=== PATIENT | male | born 1960 ===

== ENCOUNTER 2018-03-08 06:48 | Inpatient (IN) ==
[2018-03-03 12:23] LABS: Basophils # 0.1 10*3/uL (0.0-0.2); Basophils % 1.5 % (0.0-0.8); Eosinophils # 0.2 10*3/uL (0.0-0.87); Eosinophils % 3.8 % (0.00-10.9); Hematocrit 34.6 VOL% (42.0-52.0); Hemoglobin 11.4 GM/DL (14.0-18.0); Immature Granulocytes % 0.5 %; Immature Granulocytes Absolute 0.03 #; Lymphocytes # 1.3 10*3/uL (1.4-4.0); Lymphocytes % 21.9 % (21.2-54.2); Mean Corpuscular HGB Conc 32.9 GM/DL (32-36); Mean Corpuscular Hemoglobin 36 PG (27-34); Mean Corpuscular Volume 109.5 FL (87-102); Mean Platelet Volume 9.4 FL (9.6-12.0); Monocytes # 0.6 10*3/uL (0.11-0.8); Monocytes % 10.3 % (1.7-12.7); Neutrophils # 3.6 10*3/uL (1.4-7.4); Platelet Count 226 T/CUMM (130-400); Red Blood Count 3.16 MC/CUMM (3.8-5.5); Red Cell Distribution Width 17.1 % (9.3-17.3); White Blood Count 5.8 T/CUMM (4-12)
[2018-03-03 12:51] LABS: Bilirubin,Total 0.6 MG/DL (0.2-1.0); Calcium 8.7 MG/DL (8.5-10.1); Osmolality,Calculated 283.8 MOS/KG (273-304)
[~2018-03-08 06:48] MED LIST: SODIUM CHLORIDE 0.9% 250 ML IV SCH; ceFAZolin 1,000 MG VIAL ONE; ceFAZolin 1,000 MG in SYRINGE 1 EACH IV ONE
[2018-03-08 07:22] LABS: Hematocrit 33.9 VOL% (42.0-52.0); Hemoglobin 11.3 GM/DL (14.0-18.0)
[2018-03-08] MEDS ORDERED: HEPARIN 5,000 UNIT/1 ML VIAL ONE ×2 (09:14→12:23)
[2018-03-08] MEDS ORDERED: LIDOCAINE 1% 50 ML VIAL ONE (09:15)
[2018-03-08] MEDS ORDERED: VANCOMYCIN 500 MG VIAL ONE (09:15)
[2018-03-08] MEDS ORDERED: THROMBIN TOPICAL (RECOMBINANT) 5,000 UNIT VIAL TOP ONE (09:15)
[2018-03-08] MEDS ORDERED: ONDANSETRON 4 MG/2 ML VIAL IV PRN (13:11)
[2018-03-08] MEDS ORDERED: NITROGLYCERIN DRIP 50 MG/250 ML BOTTLE IV ONE (13:26)
[2018-03-08] MEDS ORDERED: LACTATED RINGERS 1,000 ML IV SCH (13:30)
[2018-03-08 13:56] LABS: Hematocrit 34.5 VOL% (42.0-52.0); Hemoglobin 11.1 GM/DL (14.0-18.0)
[2018-03-08] MEDS ORDERED: SEVOFLURANE 1 UNIT/15 MINUTE INH ONE (13:59)
[2018-03-08] MEDS ORDERED: PROPOFOL 200 MG/20 ML VIAL IV ONE (13:59)
[2018-03-08] MEDS ORDERED: MIDAZOLAM 2 MG/2 ML VIAL ONE (13:59)
[2018-03-08] MEDS ORDERED: fentaNYL 100 MCG/2 ML VIAL ONE (13:59)
[2018-03-08] MEDS ORDERED: SODIUM CHLORIDE 0.9% 500 ML IV ONE ×2 (14:00)
[2018-03-08] MEDS ORDERED: ePHEDrine 50 MG/ML AMP ONE (14:00)
[2018-03-08] MEDS ORDERED: PHENYLEPHRINE 10 MG/1 ML VIAL IV ONE (14:00)
[2018-03-08] MEDS ORDERED: PHENYLEPHRINE 1 MG/10 ML SYRINGE IV ONE (14:00)
[2018-03-08] MEDS ORDERED: ROCURONIUM 100 MG/10 ML VIAL IV ONE (14:00)
[2018-03-08] MEDS ORDERED: SODIUM CHLORIDE 0.9% 100 ML IV ONE (14:00)
[2018-03-08 14:50] LABS: CKMB % 1.1 %
[2018-03-08 14:51] LABS: Troponin I Only 0.062 NG/ML (0.00-0.045)
[2018-03-08] MEDS: ISOSORBIDE MONONITRATE 30 MG TABLET PO SCH (16:05)
[2018-03-08] MEDS: HYDROmorphone 2 MG/1 ML VIAL IV PRN ×4 (16:05→23:36)
[2018-03-08] MEDS: DOCUSATE SODIUM 100 MG CAPSULE PO SCH (20:25)
[2018-03-08] MEDS: CARVEDILOL 6.25 MG TABLET PO SCH (20:26)
[2018-03-08] MEDS: CALCIUM ACETATE 667 MG CAPSULE PO SCH (20:26)
[2018-03-08] MEDS: INSULIN NPH/REGULAR 70/30 100 UNIT/ML SUBCUT SCH (20:33)
[2018-03-08] MEDS: LATANOPROST 0.005% OPH SOLN 2.5 ML BOTTLE RIGHT EYE SCH (21:42)
[2018-03-09 04:22] LABS: Hematocrit 29.9 VOL% (42.0-52.0); Hemoglobin 9.9 GM/DL (14.0-18.0)
[2018-03-09 04:55] LABS: Calcium 7.8 MG/DL (8.5-10.1); Osmolality,Calculated 278.2 MOS/KG (273-304)
[2018-03-09] MEDS ORDERED: GLUCAGON 1 MG VIAL IM PRN ×2 (08:37→08:40)
[2018-03-09] MEDS ORDERED: DEXTROSE 50% 25 GM/50 ML VIAL IV PRN ×2 (08:37→08:40)
[2018-03-09] MEDS ORDERED: ATORVASTATIN 40 MG TABLET PO SCH (09:00)
[2018-03-09] MEDS ORDERED: CLOPIDOGREL 75 MG TABLET PO SCH (09:00)
[2018-03-09] MEDS ORDERED: ASPIRIN CHEW 81 MG TABLET PO SCH (09:00)
[2018-03-09] MEDS: INSULIN NPH/REGULAR 70/30 100 UNIT/ML SUBCUT SCH ×2 (09:03→21:18)
[2018-03-09] MEDS: FEXOFENADINE 180 MG TABLET PO SCH (09:04)
[2018-03-09] MEDS: MULTIVITAMIN (BEROCCA) TABLET PO SCH (09:05)
[2018-03-09] MEDS: MULTIVITAMIN (CENTRUM) TABLET PO SCH (09:05)
[2018-03-09] MEDS: ISOSORBIDE MONONITRATE 30 MG TABLET PO SCH (09:05)
[2018-03-09] MEDS: CALCIUM ACETATE 667 MG CAPSULE PO SCH ×3 (09:05→21:18)
[2018-03-09] MEDS: FENOFIBRATE 145 MG TABLET PO SCH (09:05)
[2018-03-09] MEDS: CARVEDILOL 6.25 MG TABLET PO SCH ×2 (09:05→21:17)
[2018-03-09] MEDS: HYDROmorphone 2 MG/1 ML VIAL IV PRN ×2 (09:05→19:51)
[2018-03-09] MEDS: CLOPIDOGREL 75 MG TABLET PO SCH (09:05)
[2018-03-09] MEDS: LOSARTAN 25 MG TABLET PO SCH (09:05)
[2018-03-09] MEDS: ASPIRIN EC 81 MG TABLET PO SCH (09:05)
[2018-03-09] MEDS: DOCUSATE SODIUM 100 MG CAPSULE PO SCH ×2 (09:25→21:17)
[2018-03-09 10:28] LABS: Troponin I Only 0.401 NG/ML (0.00-0.045)
[2018-03-09 12:37] LABS: Troponin I Only 0.305 NG/ML (0.00-0.045)
[2018-03-09] MEDS: INSULIN REGULAR 100 UNIT/ML SUBCUT SCH ×2 (13:16→21:17)
[2018-03-09] MEDS: ATORVASTATIN 40 MG TABLET PO SCH (21:17)
[2018-03-09] MEDS: LATANOPROST 0.005% OPH SOLN 2.5 ML BOTTLE RIGHT EYE SCH (22:53)
[2018-03-10 05:35] LABS: Hematocrit 27.5 VOL% (42.0-52.0); Hemoglobin 9.1 GM/DL (14.0-18.0)
[2018-03-10] MEDS: HYDROmorphone 2 MG/1 ML VIAL IV PRN ×3 (06:03→20:03)
[2018-03-10] MEDS: INSULIN NPH/REGULAR 70/30 100 UNIT/ML SUBCUT SCH ×2 (10:31→17:14)
[2018-03-10] MEDS: INSULIN REGULAR 100 UNIT/ML SUBCUT SCH ×4 (10:32→21:26)
[2018-03-10] MEDS: CALCIUM ACETATE 667 MG CAPSULE PO SCH ×3 (10:33→17:58)
[2018-03-10] MEDS: FENOFIBRATE 145 MG TABLET PO SCH (10:34)
[2018-03-10] MEDS: ASPIRIN EC 81 MG TABLET PO SCH (10:34)
[2018-03-10] MEDS: FEXOFENADINE 180 MG TABLET PO SCH (10:34)
[2018-03-10] MEDS: DOCUSATE SODIUM 100 MG CAPSULE PO SCH ×2 (10:34→21:26)
[2018-03-10] MEDS: ISOSORBIDE MONONITRATE 30 MG TABLET PO SCH (10:34)
[2018-03-10] MEDS: LOSARTAN 25 MG TABLET PO SCH (10:34)
[2018-03-10] MEDS: CLOPIDOGREL 75 MG TABLET PO SCH (10:34)
[2018-03-10] MEDS: MULTIVITAMIN (BEROCCA) TABLET PO SCH (10:34)
[2018-03-10] MEDS: CARVEDILOL 6.25 MG TABLET PO SCH ×2 (10:34→21:26)
[2018-03-10] MEDS: MULTIVITAMIN (CENTRUM) TABLET PO SCH (10:34)
[2018-03-10] MEDS: ATORVASTATIN 40 MG TABLET PO SCH (21:26)
[2018-03-10] MEDS: LATANOPROST 0.005% OPH SOLN 2.5 ML BOTTLE RIGHT EYE SCH (21:26)
[2018-03-11] MEDS: HYDROmorphone 2 MG/1 ML VIAL IV PRN ×2 (03:10→14:20)
[2018-03-11 07:19] LABS: Troponin I Only 0.108 NG/ML (0.00-0.045)
[2018-03-11] MEDS: INSULIN NPH/REGULAR 70/30 100 UNIT/ML SUBCUT SCH (08:30)
[2018-03-11] MEDS: MULTIVITAMIN (BEROCCA) TABLET PO SCH (08:30)
[2018-03-11] MEDS: LOSARTAN 25 MG TABLET PO SCH (08:30)
[2018-03-11] MEDS: CLOPIDOGREL 75 MG TABLET PO SCH (08:30)
[2018-03-11] MEDS: ISOSORBIDE MONONITRATE 30 MG TABLET PO SCH (08:30)
[2018-03-11] MEDS: FENOFIBRATE 145 MG TABLET PO SCH (08:30)
[2018-03-11] MEDS: ASPIRIN EC 81 MG TABLET PO SCH (08:30)
[2018-03-11] MEDS: DOCUSATE SODIUM 100 MG CAPSULE PO SCH (08:30)
[2018-03-11] MEDS: CARVEDILOL 6.25 MG TABLET PO SCH (08:30)
[2018-03-11] MEDS: CALCIUM ACETATE 667 MG CAPSULE PO SCH ×2 (08:30→12:18)
[2018-03-11] MEDS: FEXOFENADINE 180 MG TABLET PO SCH (08:30)
[2018-03-11] MEDS: MULTIVITAMIN (CENTRUM) TABLET PO SCH (08:30)
[2018-03-11] MEDS: INSULIN REGULAR 100 UNIT/ML SUBCUT SCH ×3 (08:38→16:46)
[2018-03-11 16:02] VITALS: BP 112/56
== END 2018-03-11 17:42 | disposition home or self-care (01) | DRG 252 ==
LOC: N.OR 06:48 → N.SDSINP 08:50 → N.CC 13:11 → N.3E 03-09 18:51
PROVIDERS: ADMIT Surgery; ATTEND Surgery

== ENCOUNTER 2019-09-30 18:36 | Inpatient (IN) ==
[2019-09-30] MEDS ORDERED: ASPIRIN 325 MG TABLET PO ONE (21:24)
[2019-09-30] MEDS ORDERED: ACETAMINOPHEN 325 MG TABLET PO PRN (21:29)
[2019-09-30] MEDS ORDERED: guaiFENesin/DM ER 600-30 MG TABLET PO PRN (21:29)
[2019-09-30] MEDS ORDERED: ONDANSETRON 4 MG/2 ML VIAL IV PRN (21:29)
[2019-09-30] MEDS ORDERED: ATORVASTATIN 40 MG TABLET PO SCH (21:30)
[2019-09-30] MEDS ORDERED: DEXTROSE 50% 25 GM/50 ML VIAL IV PRN (21:32)
[2019-09-30] MEDS ORDERED: GLUCAGON 1 MG VIAL IM PRN (21:32)
[2019-09-30] MEDS: SODIUM CHLORIDE 0.9% 1,000 ML IV SCH (22:45)
[2019-09-30 23:34] LABS: Basophils # 0.1 10*3/uL (0.0-0.2); Basophils % 1.3 % (0.0-0.8); Eosinophils # 0.2 10*3/uL (0.0-0.87); Hematocrit 36.3 VOL% (42.0-52.0); Hemoglobin 11.9 GM/DL (14.0-18.0); Immature Granulocytes % 0.4 %; Immature Granulocytes Absolute 0.02 #; Lymphocytes # 1.2 10*3/uL (1.4-4.0); Lymphocytes % 25.2 % (21.2-54.2); Mean Corpuscular HGB Conc 32.8 GM/DL (32-36); Mean Corpuscular Volume 103.7 FL (87-102); Mean Platelet Volume 9.6 FL (9.6-12.0); Monocytes % 8.9 % (1.7-12.7); Neutrophils % 59.2 % (38.7-73.9); Platelet Count 186 T/CUMM (130-400); Red Cell Distribution Width 18.2 % (9.3-17.3); White Blood Count 4.6 T/CUMM (4-12)
[2019-09-30 23:42] LABS: INR 1.1; PT Patient Result 11.4 SECS (9.6-12.2)
[2019-09-30 23:46] LABS: Calcium 8.5 MG/DL (8.5-10.1); Osmolality,Calculated 286.8 MOS/KG (273-304)
[2019-10-01 05:39] LABS: Basophils # 0.1 10*3/uL (0.0-0.2); Basophils % 1.4 % (0.0-0.8); Eosinophils # 0.3 10*3/uL (0.0-0.87); Eosinophils % 5.2 % (0.00-10.9); Hematocrit 34.2 VOL% (42.0-52.0); Hemoglobin 11.3 GM/DL (14.0-18.0); Immature Granulocytes % 0.4 %; Immature Granulocytes Absolute 0.02 #; Lymphocytes # 1.2 10*3/uL (1.4-4.0); Lymphocytes % 25.1 % (21.2-54.2); Mean Corpuscular Volume 103.6 FL (87-102); Mean Platelet Volume 10.1 FL (9.6-12.0); Neutrophils % 56.9 % (38.7-73.9); Platelet Count 189 T/CUMM (130-400); Red Cell Distribution Width 18.2 % (9.3-17.3); White Blood Count 4.8 T/CUMM (4-12)
[2019-10-01 07:18] LABS: Albumin 3.2 G/DL (3.4-5.0); Bilirubin,Total 0.6 MG/DL (0.2-1.0); Calcium 8.5 MG/DL (8.5-10.1); Osmolality,Calculated 289.5 MOS/KG (273-304); Risk Ratio 5.38; Total Protein 6.6 G/DL (6.4-8.3); VLDL CHOLESTEROL 69.8 MG/DL
[2019-10-01] MEDS ORDERED: AMOXICILLIN/CLAV 875 MG TABLET PO SCH (08:00)
[2019-10-01] MEDS: hydrALAZINE 20 MG/1 ML VIAL IV PRN ×2 (08:32→10:55)
[2019-10-01] MEDS ORDERED: FENOFIBRATE 145 MG TABLET PO SCH (09:00)
[2019-10-01] MEDS ORDERED: CLOPIDOGREL 75 MG TABLET PO SCH (09:00)
[2019-10-01] MEDS ORDERED: B COMPLEX WITH VITAMIN C PO SCH (09:00)
[2019-10-01] MEDS ORDERED: ISOSORBIDE MONONITRATE 30 MG TABLET PO SCH (09:00)
[2019-10-01] MEDS ORDERED: MULTIVITAMIN (CENTRUM) TABLET PO SCH (09:00)
[2019-10-01] MEDS ORDERED: PANTOPRAZOLE 40 MG TABLET PO SCH (09:00)
[2019-10-01] MEDS ORDERED: ASPIRIN EC 325 MG TABLET PO SCH (09:00)
[2019-10-01] MEDS: INSULIN LISPRO 100 UNIT/ML SUBCUT SCH ×4 (10:27→20:38)
[2019-10-01] MEDS ORDERED: ASPIRIN 325 MG TABLET ONE (10:42)
[2019-10-01] MEDS: CALCIUM ACETATE 667 MG CAPSULE PO SCH ×3 (10:47→16:44)
[2019-10-01] MEDS: carvediloL 6.25 MG TABLET PO SCH ×2 (10:48→16:43)
[2019-10-01] MEDS: SODIUM CHLORIDE 0.9% 1,000 ML IV SCH (11:04)
[2019-10-01] MEDS: INSULIN NPH 100 UNIT/ML SUBCUT SCH (16:43)
[2019-10-01] MEDS ORDERED: DOCUSATE SODIUM 100 MG CAPSULE PO SCH (21:00)
[2019-10-01] MEDS ORDERED: LOSARTAN 25 MG TABLET PO SCH (21:00)
[2019-10-01] MEDS ORDERED: LATANOPROST 0.005% OPH SOLN 2.5 ML BOTTLE RIGHT EYE SCH (21:00)
[2019-10-01] MEDS ORDERED: ATORVASTATIN 40 MG TABLET PO SCH (21:00)
[2019-10-02 08:21] VITALS: BP 164/78
[2019-10-02 08:50] LABS: Basophils # 0.1 10*3/uL (0.0-0.2); Basophils % 0.9 % (0.0-0.8); Eosinophils # 0.2 10*3/uL (0.0-0.87); Eosinophils % 3.2 % (0.00-10.9); Hematocrit 37.1 VOL% (42.0-52.0); Hemoglobin 12.1 GM/DL (14.0-18.0); Immature Granulocytes % 0.4 %; Immature Granulocytes Absolute 0.03 #; Lymphocytes # 1.3 10*3/uL (1.4-4.0); Mean Corpuscular HGB Conc 32.6 GM/DL (32-36); Monocytes % 9.1 % (1.7-12.7); Neutrophils % 68.4 % (38.7-73.9); Platelet Count 180 T/CUMM (130-400); Red Cell Distribution Width 18.6 % (9.3-17.3)
[2019-10-02] MEDS ORDERED: FENOFIBRATE 145 MG TABLET PO SCH (09:00)
[2019-10-02] MEDS ORDERED: ASPIRIN EC 81 MG TABLET PO SCH (09:00)
[2019-10-02] MEDS: INSULIN LISPRO 100 UNIT/ML SUBCUT SCH (09:03)
[2019-10-02 09:13] LABS: Calcium 8.6 MG/DL (8.5-10.1); Osmolality,Calculated 291.8 MOS/KG (273-304)
[2019-10-02] MEDS: INSULIN NPH 100 UNIT/ML SUBCUT SCH (10:51)
[2019-10-02] MEDS: CALCIUM ACETATE 667 MG CAPSULE PO SCH (10:52)
== END 2019-10-02 14:53 | disposition home or self-care (01) | DRG 304 ==
LOC: N.TELEN → SUATTDRO 21:29
PROVIDERS: ADMIT Internal Medicine; ATTEND Internal Medicine

== ENCOUNTER 2020-10-22 19:25 | Inpatient (IN) ==
[2020-10-22] MEDS ORDERED: PIPERACILLIN/TAZOBACTAM 2,250 MG in SODIUM CHLORIDE 0.9% 100 ML IV STA (19:54)
[2020-10-22 20:23] LABS: Basophils # 0.1 10*3/uL (0.0-0.2); Basophils % 0.9 % (0.0-0.8); Eosinophils # 0.3 10*3/uL (0.0-0.87); Eosinophils % 3.4 % (0.00-10.9); Hematocrit 35.8 VOL% (42.0-52.0); Hemoglobin 12.1 GM/DL (14.0-18.0); Immature Granulocytes % 0.5 %; Immature Granulocytes Absolute 0.04 #; Lymphocytes # 1.1 10*3/uL (1.4-4.0); Lymphocytes % 14.6 % (21.2-54.2); Mean Corpuscular HGB Conc 33.8 GM/DL (32-36); Mean Corpuscular Volume 103.8 FL (87-102); Mean Platelet Volume 9.3 FL (9.6-12.0); Monocytes % 8.5 % (1.7-12.7); Neutrophils % 72.1 % (38.7-73.9); Platelet Count 216 T/CUMM (130-400); Red Blood Count 3.45 MC/CUMM (3.8-5.5); Red Cell Distribution Width 15.8 % (9.3-17.3); White Blood Count 7.5 T/CUMM (4-12)
[2020-10-22] MEDS ORDERED: ACETAMINOPHEN 325 MG TABLET PO PRN (20:32)
[2020-10-22] MEDS ORDERED: GLUCAGON 1 MG VIAL IM PRN (20:32)
[2020-10-22] MEDS ORDERED: ONDANSETRON 4 MG/2 ML VIAL IV PRN (20:32)
[2020-10-22] MEDS ORDERED: DEXTROSE 50% 25 GM/50 ML VIAL IV PRN (20:32)
[2020-10-22 20:44] LABS: Albumin 2.8 G/DL (3.4-5.0); Bilirubin,Total 0.5 MG/DL (0.2-1.0); Osmolality,Calculated 272.5 MOS/KG (273-304); Total Protein 7.8 G/DL (6.4-8.3)
[2020-10-22] MEDS: INSULIN REGULAR 100 UNIT/ML SUBCUT SCH (22:14)
[2020-10-23] MEDS: PIPERACILLIN/TAZOBACTAM 3,375 MG in SODIUM CHLORIDE 0.9% 100 ML IV SCH ×2 (09:22→21:25)
[2020-10-23] MEDS: INSULIN REGULAR 100 UNIT/ML SUBCUT SCH ×4 (09:29→20:11)
[2020-10-23] MEDS ORDERED: fentaNYL 100 MCG/2 ML VIAL ONE (10:40)
[2020-10-23] MEDS ORDERED: MIDAZOLAM 2 MG/2 ML VIAL ONE (10:40)
[2020-10-23] MEDS ORDERED: LIDOCAINE 1% 20 ML VIAL ONE (10:54)
[2020-10-23] MEDS ORDERED: LIDOCAINE 2% 5 ML VIAL ONE (11:20)
[2020-10-23] MEDS ORDERED: ONDANSETRON 4 MG/2 ML VIAL ONE (11:20)
[2020-10-23] MEDS ORDERED: SEVOFLURANE 1 UNIT/15 MINUTE INH ONE ×2 (11:20→11:46)
[2020-10-23] MEDS ORDERED: PHENYLEPHRINE 1 MG/10 ML SYRINGE IV ONE (11:32)
[2020-10-23] MEDS ORDERED: GLYCOPYRROLATE 0.4 MG/2 ML VIAL ONE (11:32)
[2020-10-23] MEDS ORDERED: ePHEDrine 50 MG/ML VIAL ONE (11:33)
[2020-10-23] MEDS ORDERED: EPINEPHrine 1 MG/ML VIAL ONE (11:36)
[2020-10-23] MEDS ORDERED: ATROPINE 1 MG/10 ML SYRINGE ONE (11:46)
[2020-10-23] MEDS ORDERED: SODIUM CHLORIDE 0.9% 250 ML IV ONE (11:46)
[2020-10-23] MEDS ORDERED: DEXTROSE 50% 25 GM/50 ML VIAL IV PRN (11:58)
[2020-10-23] MEDS ORDERED: GLUCAGON 1 MG VIAL IM PRN (11:58)
[2020-10-23] MEDS ORDERED: DOCUSATE SODIUM 100 MG CAPSULE PO PRN (12:00)
[2020-10-23] MEDS: CALCIUM ACETATE 667 MG CAPSULE PO SCH ×3 (14:23→18:45)
[2020-10-23] MEDS: INSULIN NPH/REGULAR 70/30 100 UNIT/ML SUBCUT SCH (17:37)
[2020-10-23] MEDS: ATORVASTATIN 40 MG TABLET PO SCH (21:25)
[2020-10-24 05:27] LABS: Basophils # 0.1 10*3/uL (0.0-0.2); Basophils % 0.9 % (0.0-0.8); Eosinophils # 0.2 10*3/uL (0.0-0.87); Eosinophils % 3.2 % (0.00-10.9); Hematocrit 32.9 VOL% (42.0-52.0); Hemoglobin 10.7 GM/DL (14.0-18.0); Immature Granulocytes % 0.7 %; Immature Granulocytes Absolute 0.05 #; Lymphocytes # 1.1 10*3/uL (1.4-4.0); Lymphocytes % 14.6 % (21.2-54.2); Mean Corpuscular HGB Conc 32.5 GM/DL (32-36); Mean Corpuscular Volume 106.1 FL (87-102); Mean Platelet Volume 9.4 FL (9.6-12.0); Monocytes % 10.5 % (1.7-12.7); Neutrophils % 70.1 % (38.7-73.9); Platelet Count 243 T/CUMM (130-400); Red Cell Distribution Width 15.9 % (9.3-17.3); White Blood Count 7.5 T/CUMM (4-12)
[2020-10-24] MEDS: FENOFIBRATE 145 MG TABLET PO SCH (09:04)
[2020-10-24] MEDS: CALCIUM ACETATE 667 MG CAPSULE PO SCH ×3 (09:04→16:13)
[2020-10-24] MEDS: INSULIN NPH/REGULAR 70/30 100 UNIT/ML SUBCUT SCH ×2 (09:05→16:13)
[2020-10-24] MEDS: MULTIVITAMIN (BEROCCA) TABLET PO SCH (09:05)
[2020-10-24] MEDS: ISOSORBIDE MONONITRATE 30 MG TABLET PO SCH (09:05)
[2020-10-24] MEDS: INSULIN REGULAR 100 UNIT/ML SUBCUT SCH ×4 (09:05→21:40)
[2020-10-24] MEDS: cloNIDine 0.1 MG TABLET PO SCH (09:05)
[2020-10-24] MEDS: PIPERACILLIN/TAZOBACTAM 3,375 MG in SODIUM CHLORIDE 0.9% 100 ML IV SCH ×2 (09:07→20:45)
[2020-10-24] MEDS: ATORVASTATIN 40 MG TABLET PO SCH (20:44)
[2020-10-24] MEDS ORDERED: ALUMINUM/MAGNES/SIMETH MAX STR 30 ML UDCUP PO PRN (22:13)
[2020-10-25 05:42] LABS: Basophils # 0.1 10*3/uL (0.0-0.2); Basophils % 1.2 % (0.0-0.8); Eosinophils # 0.4 10*3/uL (0.0-0.87); Eosinophils % 4.4 % (0.00-10.9); Hematocrit 29.8 VOL% (42.0-52.0); Immature Granulocytes % 0.7 %; Immature Granulocytes Absolute 0.06 #; Lymphocytes # 1.2 10*3/uL (1.4-4.0); Lymphocytes % 14.5 % (21.2-54.2); Mean Corpuscular HGB Conc 33.6 GM/DL (32-36); Mean Corpuscular Volume 105.3 FL (87-102); Mean Platelet Volume 9.3 FL (9.6-12.0); Monocytes % 10.5 % (1.7-12.7); Neutrophils % 68.7 % (38.7-73.9); Platelet Count 232 T/CUMM (130-400); Red Blood Count 2.83 MC/CUMM (3.8-5.5); Red Cell Distribution Width 15.9 % (9.3-17.3); White Blood Count 8.2 T/CUMM (4-12)
[2020-10-25 06:50] LABS: Calcium 9.1 MG/DL (8.5-10.1); Osmolality,Calculated 284.1 MOS/KG (273-304)
[2020-10-25] MEDS: INSULIN NPH/REGULAR 70/30 100 UNIT/ML SUBCUT SCH ×2 (08:04→17:51)
[2020-10-25] MEDS: CALCIUM ACETATE 667 MG CAPSULE PO SCH ×3 (08:04→17:50)
[2020-10-25] MEDS: INSULIN REGULAR 100 UNIT/ML SUBCUT SCH ×4 (08:05→21:13)
[2020-10-25] MEDS: PIPERACILLIN/TAZOBACTAM 3,375 MG in SODIUM CHLORIDE 0.9% 100 ML IV SCH ×2 (10:57→21:14)
[2020-10-25] MEDS: cloNIDine 0.1 MG TABLET PO SCH (10:58)
[2020-10-25] MEDS: MULTIVITAMIN (BEROCCA) TABLET PO SCH (10:58)
[2020-10-25] MEDS: ISOSORBIDE MONONITRATE 30 MG TABLET PO SCH (10:58)
[2020-10-25] MEDS: FENOFIBRATE 145 MG TABLET PO SCH (10:58)
[2020-10-25] MEDS: ATORVASTATIN 40 MG TABLET PO SCH (21:13)
[2020-10-26 06:03] LABS: Basophils # 0.1 10*3/uL (0.0-0.2); Eosinophils # 0.4 10*3/uL (0.0-0.87); Eosinophils % 5.1 % (0.00-10.9); Hematocrit 28.8 VOL% (42.0-52.0); Hemoglobin 9.6 GM/DL (14.0-18.0); Immature Granulocytes % 0.7 %; Immature Granulocytes Absolute 0.06 #; Lymphocytes # 1.1 10*3/uL (1.4-4.0); Lymphocytes % 13.8 % (21.2-54.2); Mean Corpuscular HGB Conc 33.3 GM/DL (32-36); Mean Corpuscular Volume 104.3 FL (87-102); Mean Platelet Volume 9.1 FL (9.6-12.0); Monocytes % 8.7 % (1.7-12.7); Neutrophils % 70.7 % (38.7-73.9); Platelet Count 244 T/CUMM (130-400); Red Blood Count 2.76 MC/CUMM (3.8-5.5); Red Cell Distribution Width 15.9 % (9.3-17.3); White Blood Count 8.2 T/CUMM (4-12)
[2020-10-26 06:30] LABS: Calcium 9.1 MG/DL (8.5-10.1); Osmolality,Calculated 287.1 MOS/KG (273-304)
[2020-10-26 07:34] VITALS: BP 147/58
[2020-10-26] MEDS: ISOSORBIDE MONONITRATE 30 MG TABLET PO SCH (08:33)
[2020-10-26] MEDS: INSULIN NPH/REGULAR 70/30 100 UNIT/ML SUBCUT SCH (08:33)
[2020-10-26] MEDS: MULTIVITAMIN (BEROCCA) TABLET PO SCH (08:33)
[2020-10-26] MEDS: CALCIUM ACETATE 667 MG CAPSULE PO SCH ×2 (08:33→15:10)
[2020-10-26] MEDS: FENOFIBRATE 145 MG TABLET PO SCH (08:33)
[2020-10-26] MEDS: cloNIDine 0.1 MG TABLET PO SCH (08:33)
[2020-10-26] MEDS: INSULIN REGULAR 100 UNIT/ML SUBCUT SCH (08:34)
== END 2020-10-26 15:41 | disposition home health service (06) | DRG 255 ==
LOC: N.ED 19:25 → N.EDINP 20:32 → N.3E 21:04
PROVIDERS: ADMIT Internal Medicine; ATTEND Internal Medicine

== ENCOUNTER 2020-11-12 18:42 | Inpatient (IN) ==
[2020-11-12 19:26] LABS: Basophils # 0.1 10*3/uL (0.0-0.2); Basophils % 0.6 % (0.0-0.8); Eosinophils % 0.2 % (0.00-10.9); Hematocrit 29.9 VOL% (42.0-52.0); Hemoglobin 9.8 GM/DL (14.0-18.0); Immature Granulocytes % 0.5 %; Immature Granulocytes Absolute 0.06 #; Lymphocytes # 0.7 10*3/uL (1.4-4.0); Lymphocytes % 6.4 % (21.2-54.2); Mean Corpuscular HGB Conc 32.8 GM/DL (32-36); Mean Corpuscular Volume 102.7 FL (87-102); Mean Platelet Volume 10.1 FL (9.6-12.0); Monocytes % 10.3 % (1.7-12.7); Platelet Count 198 T/CUMM (130-400); Red Blood Count 2.91 MC/CUMM (3.8-5.5); White Blood Count 11.3 T/CUMM (4-12)
[2020-11-12 19:37] LABS: INR 1.3; PT Patient Result 13.7 SECS (9.8-11.9)
[2020-11-12 19:46] LABS: Alanine Aminotransferase 38 U/L (16-61); Albumin 2.4 G/DL (3.4-5.0); Alkaline Phosphatase 77 U/L (45-117); Aspartate Amino Transferase 91 U/L (0-37); Blood Urea Nitrogen 51 MG/DL (7-18); Carbon Dioxide 29 MMOL/L (21-32); Estimated Glom Filtration Rate 7 ML/MIN; Glucose 212 MG/DL (74-106); Osmolality,Calculated 283.5 MOS/KG (273-304); Potassium 4.8 MMOL/L (3.5-5.1); Sodium 132 MMOL/L (136-145); Total Protein 7.5 G/DL (6.4-8.3)
[2020-11-12] MEDS ORDERED: VANCOMYCIN INJ 1,000 MG in SODIUM CHLORIDE 0.9% 250 ML IV ONE (21:00)
[2020-11-12] MEDS ORDERED: MORPHINE 4 MG/1 ML VIAL IV PRN (21:01)
[2020-11-12] MEDS ORDERED: DEXTROSE 50% 25 GM/50 ML VIAL IV PRN (21:01)
[2020-11-12] MEDS ORDERED: GLUCAGON 1 MG VIAL IM PRN (21:01)
[2020-11-12] MEDS ORDERED: ONDANSETRON 4 MG/2 ML VIAL IV PRN (21:01)
[2020-11-13 06:16] LABS: Basophils # 0.1 10*3/uL (0.0-0.2); Basophils % 0.5 % (0.0-0.8); Eosinophils # 0.1 10*3/uL (0.0-0.87); Eosinophils % 1.3 % (0.00-10.9); Hemoglobin 8.1 GM/DL (14.0-18.0); Immature Granulocytes % 0.5 %; Immature Granulocytes Absolute 0.06 #; Lymphocytes # 1.1 10*3/uL (1.4-4.0); Lymphocytes % 9.5 % (21.2-54.2); Mean Corpuscular HGB Conc 32.4 GM/DL (32-36); Mean Corpuscular Volume 103.3 FL (87-102); Mean Platelet Volume 10.1 FL (9.6-12.0); Monocytes % 8.5 % (1.7-12.7); Neutrophils % 79.7 % (38.7-73.9); Platelet Count 209 T/CUMM (130-400); Red Blood Count 2.42 MC/CUMM (3.8-5.5); Red Cell Distribution Width 17.1 % (9.3-17.3)
[2020-11-13 06:38] LABS: Albumin 2.3 G/DL (3.4-5.0); Bilirubin,Total 0.9 MG/DL (0.2-1.0); Calcium 9.1 MG/DL (8.5-10.1); Osmolality,Calculated 281.5 MOS/KG (273-304); Potassium 5.1 MMOL/L (3.5-5.1); Total Protein 7.3 G/DL (6.4-8.3)
[2020-11-13] MEDS: INSULIN LISPRO 100 UNIT/ML SUBCUT SCH ×4 (07:33→21:00)
[2020-11-13] MEDS ORDERED: LIDOCAINE 2% 5 ML VIAL ONE (09:26)
[2020-11-13] MEDS ORDERED: ONDANSETRON 4 MG/2 ML VIAL ONE (09:26)
[2020-11-13] MEDS ORDERED: propofoL 200 MG/20 ML VIAL IV ONE (09:26)
[2020-11-13] MEDS ORDERED: LIDOCAINE 1% 20 ML VIAL ONE (09:34)
[2020-11-13] MEDS ORDERED: fentaNYL 100 MCG/2 ML VIAL ONE (09:55)
[2020-11-13] MEDS ORDERED: MIDAZOLAM 2 MG/2 ML VIAL ONE (09:55)
[2020-11-13] MEDS ORDERED: ETOMIDATE 40 MG/20 ML VIAL IV ONE (10:01)
[2020-11-13] MEDS ORDERED: ePHEDrine 50 MG/ML VIAL ONE (10:05)
[2020-11-13] MEDS ORDERED: cloNIDine 0.1 MG TABLET PO PRN (10:07)
[2020-11-13] MEDS ORDERED: GLUCAGON 1 MG VIAL IM PRN (12:43)
[2020-11-13] MEDS ORDERED: DEXTROSE 50% 25 GM/50 ML VIAL IV PRN (12:43)
[2020-11-13] MEDS: CALCIUM ACETATE 667 MG CAPSULE PO SCH ×2 (13:06→17:00)
[2020-11-13] MEDS: LACTATED RINGERS 1,000 ML IV SCH (13:12)
[2020-11-13] MEDS: METOCLOPRAMIDE 10 MG TABLET PO SCH ×2 (16:30→20:26)
[2020-11-13] MEDS ORDERED: VANCOMYCIN INJ 1,000 MG in SODIUM CHLORIDE 0.9% 250 ML IV ONE (16:57)
[2020-11-13] MEDS ORDERED: HEPARIN 10,000 UNIT/10 ML VIAL IV SCH (17:15)
[2020-11-13] MEDS: ISOSORBIDE MONONITRATE 30 MG TABLET PO SCH (20:26)
[2020-11-13] MEDS: ATORVASTATIN 40 MG TABLET PO SCH (20:26)
[2020-11-13] MEDS: VANCOMYCIN INJ 1,000 MG in SODIUM CHLORIDE 0.9% 250 ML IV SCH (20:28)
[2020-11-14 06:17] LABS: Basophils # 0.1 10*3/uL (0.0-0.2); Basophils % 0.8 % (0.0-0.8); Eosinophils # 0.1 10*3/uL (0.0-0.87); Eosinophils % 1.1 % (0.00-10.9); Hematocrit 26.8 VOL% (42.0-52.0); Hemoglobin 8.7 GM/DL (14.0-18.0); Immature Granulocytes % 0.9 %; Immature Granulocytes Absolute 0.09 #; Lymphocytes # 0.9 10*3/uL (1.4-4.0); Lymphocytes % 8.6 % (21.2-54.2); Mean Corpuscular HGB Conc 32.5 GM/DL (32-36); Mean Corpuscular Volume 104.3 FL (87-102); Mean Platelet Volume 9.7 FL (9.6-12.0); Monocytes % 9.2 % (1.7-12.7); Neutrophils % 79.4 % (38.7-73.9); Platelet Count 233 T/CUMM (130-400); Red Blood Count 2.57 MC/CUMM (3.8-5.5); Red Cell Distribution Width 17.1 % (9.3-17.3); White Blood Count 10.5 T/CUMM (4-12)
[2020-11-14 06:57] LABS: % Iron Saturation 15.1 % (18-50); Ferritin 1892.1 ng/ml (26-388)
[2020-11-14 07:15] LABS: Albumin 2.3 G/DL (3.4-5.0); Calcium 9.1 MG/DL (8.5-10.1); Osmolality,Calculated 278.5 MOS/KG (273-304); Potassium 4.4 MMOL/L (3.5-5.1); Total Protein 7.6 G/DL (6.4-8.3)
[2020-11-14 08:21] LABS: Folate 8.5 NG/ML (5.4-24.0)
[2020-11-14] MEDS: MULTIVITAMIN (BEROCCA) TABLET PO SCH (08:59)
[2020-11-14] MEDS: ISOSORBIDE MONONITRATE 30 MG TABLET PO SCH (08:59)
[2020-11-14] MEDS: CALCIUM ACETATE 667 MG CAPSULE PO SCH ×3 (08:59→17:55)
[2020-11-14] MEDS: FENOFIBRATE 145 MG TABLET PO SCH (08:59)
[2020-11-14] MEDS: METOCLOPRAMIDE 10 MG TABLET PO SCH ×4 (08:59→21:02)
[2020-11-14] MEDS: INSULIN LISPRO 100 UNIT/ML SUBCUT SCH ×3 (09:09→17:54)
[2020-11-14] MEDS: LACTATED RINGERS 1,000 ML IV SCH (10:30)
[2020-11-14] MEDS: PANTOPRAZOLE 40 MG TABLET PO SCH (10:47)
[2020-11-14] MEDS ORDERED: POLYETHYLENE GLYCOL POWDER 17 GM PACK PO SCH (15:00)
[2020-11-14] MEDS: POLYETHYLENE GLYCOL POWDER 17 GM PACK PO SCH (17:54)
[2020-11-14] MEDS: ATORVASTATIN 40 MG TABLET PO SCH (21:02)
[2020-11-14] MEDS: ACETAMINOPHEN 325 MG TABLET PO PRN (23:12)
[2020-11-15 05:56] LABS: Basophils # 0.1 10*3/uL (0.0-0.2); Basophils % 0.7 % (0.0-0.8); Eosinophils # 0.2 10*3/uL (0.0-0.87); Eosinophils % 2.1 % (0.00-10.9); Hematocrit 24.8 VOL% (42.0-52.0); Hemoglobin 7.8 GM/DL (14.0-18.0); Immature Granulocytes % 0.7 %; Immature Granulocytes Absolute 0.08 #; Lymphocytes # 1.1 10*3/uL (1.4-4.0); Lymphocytes % 9.9 % (21.2-54.2); Mean Corpuscular HGB Conc 31.5 GM/DL (32-36); Mean Corpuscular Volume 102.5 FL (87-102); Mean Platelet Volume 9.8 FL (9.6-12.0); Monocytes % 10.1 % (1.7-12.7); Neutrophils % 76.5 % (38.7-73.9); Platelet Count 248 T/CUMM (130-400); Red Blood Count 2.42 MC/CUMM (3.8-5.5); Red Cell Distribution Width 16.9 % (9.3-17.3); White Blood Count 10.7 T/CUMM (4-12)
[2020-11-15 06:26] LABS: Calcium 9.1 MG/DL (8.5-10.1); Osmolality,Calculated 280.7 MOS/KG (273-304); Potassium 4.7 MMOL/L (3.5-5.1)
[2020-11-15] MEDS: METOCLOPRAMIDE 10 MG TABLET PO SCH ×4 (07:16→22:16)
[2020-11-15] MEDS: INSULIN LISPRO 100 UNIT/ML SUBCUT SCH ×5 (07:17→22:15)
[2020-11-15] MEDS: CALCIUM ACETATE 667 MG CAPSULE PO SCH ×3 (08:03→17:31)
[2020-11-15] MEDS ORDERED: cloNIDine 0.1 MG TABLET PO PRN (09:19)
[2020-11-15] MEDS: LACTATED RINGERS 1,000 ML IV SCH (10:01)
[2020-11-15] MEDS: MULTIVITAMIN (BEROCCA) TABLET PO SCH (11:40)
[2020-11-15] MEDS: POLYETHYLENE GLYCOL POWDER 17 GM PACK PO SCH (11:40)
[2020-11-15] MEDS: FENOFIBRATE 145 MG TABLET PO SCH (11:40)
[2020-11-15] MEDS: PANTOPRAZOLE 40 MG TABLET PO SCH (11:40)
[2020-11-15] MEDS: ISOSORBIDE MONONITRATE 30 MG TABLET PO SCH (11:40)
[2020-11-15] MEDS ORDERED: CALCIUM ACETATE 667 MG CAPSULE PO SCH (12:00)
[2020-11-15] MEDS: INSULIN ASPART PROTAMINE/ASPART 70/30 100 UNIT/ML SUBCUT SCH (17:30)
[2020-11-15] MEDS: VANCOMYCIN INJ 1,000 MG in SODIUM CHLORIDE 0.9% 250 ML IV SCH (17:32)
[2020-11-15] MEDS ORDERED: ATORVASTATIN 40 MG TABLET PO SCH (21:00)
[2020-11-15] MEDS: carvediloL 6.25 MG TABLET PO SCH (22:16)
[2020-11-15] MEDS: ATORVASTATIN 40 MG TABLET PO SCH (22:16)
[2020-11-16 07:12] LABS: Basophils # 0.1 10*3/uL (0.0-0.2); Basophils % 0.5 % (0.0-0.8); Eosinophils # 0.2 10*3/uL (0.0-0.87); Eosinophils % 1.5 % (0.00-10.9); Hemoglobin 8.3 GM/DL (14.0-18.0); Immature Granulocytes Absolute 0.12 #; Lymphocytes # 1.1 10*3/uL (1.4-4.0); Lymphocytes % 9.2 % (21.2-54.2); Mean Corpuscular HGB Conc 31.9 GM/DL (32-36); Mean Corpuscular Volume 103.2 FL (87-102); Mean Platelet Volume 9.8 FL (9.6-12.0); Monocytes % 9.6 % (1.7-12.7); Neutrophils % 78.2 % (38.7-73.9); Platelet Count 270 T/CUMM (130-400); Red Blood Count 2.52 MC/CUMM (3.8-5.5); Red Cell Distribution Width 16.9 % (9.3-17.3)
[2020-11-16 07:39] LABS: Osmolality,Calculated 281.5 MOS/KG (273-304); Potassium 4.9 MMOL/L (3.5-5.1)
[2020-11-16] MEDS ORDERED: ISOSORBIDE MONONITRATE 30 MG TABLET PO SCH (09:00)
[2020-11-16] MEDS ORDERED: FENOFIBRATE 145 MG TABLET PO SCH (09:00)
[2020-11-16] MEDS ORDERED: B COMPLEX WITH VITAMIN C PO SCH (09:00)
[2020-11-16] MEDS: INSULIN LISPRO 100 UNIT/ML SUBCUT SCH ×4 (09:05→21:53)
[2020-11-16] MEDS: INSULIN NPH/REGULAR 70/30 100 UNIT/ML SUBCUT SCH (09:05)
[2020-11-16] MEDS: ISOSORBIDE MONONITRATE 30 MG TABLET PO SCH (09:06)
[2020-11-16] MEDS: ASPIRIN EC 81 MG TABLET PO SCH (09:06)
[2020-11-16] MEDS: PANTOPRAZOLE 40 MG TABLET PO SCH (09:06)
[2020-11-16] MEDS: CALCIUM ACETATE 667 MG CAPSULE PO SCH ×3 (09:06→17:27)
[2020-11-16] MEDS: METOCLOPRAMIDE 10 MG TABLET PO SCH ×4 (09:06→21:55)
[2020-11-16] MEDS: FENOFIBRATE 145 MG TABLET PO SCH (09:06)
[2020-11-16] MEDS: DOCUSATE SODIUM 100 MG CAPSULE PO PRN ×2 (09:06→21:53)
[2020-11-16] MEDS: LOSARTAN 50 MG TABLET PO SCH (09:06)
[2020-11-16] MEDS: MULTIVITAMIN (BEROCCA) TABLET PO SCH (09:06)
[2020-11-16] MEDS: CLOPIDOGREL 75 MG TABLET PO SCH (09:06)
[2020-11-16] MEDS: carvediloL 6.25 MG TABLET PO SCH ×2 (09:06→21:53)
[2020-11-16] MEDS: POLYETHYLENE GLYCOL POWDER 17 GM PACK PO SCH (09:07)
[2020-11-16 09:49] LABS: Immunoglobulin A 162 MG/DL (70-400); Immunoglobulin G 1180 MG/DL (700-1600); Immunoglobulin M < 21 MG/DL (40-230); Total Protein 7.1 G/DL (6.4-8.3)
[2020-11-16] MEDS: LACTATED RINGERS 1,000 ML IV SCH (10:32)
[2020-11-16] MEDS: INSULIN ASPART PROTAMINE/ASPART 70/30 100 UNIT/ML SUBCUT SCH (17:28)
[2020-11-16] MEDS: ATORVASTATIN 40 MG TABLET PO SCH (21:53)
[2020-11-17 06:24] LABS: Basophils # 0.1 10*3/uL (0.0-0.2); Basophils % 0.5 % (0.0-0.8); Eosinophils # 0.3 10*3/uL (0.0-0.87); Eosinophils % 2.2 % (0.00-10.9); Hematocrit 23.8 VOL% (42.0-52.0); Hemoglobin 7.7 GM/DL (14.0-18.0); Immature Granulocytes % 0.9 %; Immature Granulocytes Absolute 0.11 #; Lymphocytes # 1.3 10*3/uL (1.4-4.0); Lymphocytes % 10.2 % (21.2-54.2); Mean Corpuscular HGB Conc 32.4 GM/DL (32-36); Mean Corpuscular Volume 102.1 FL (87-102); Mean Platelet Volume 9.6 FL (9.6-12.0); Monocytes % 8.5 % (1.7-12.7); Neutrophils % 77.7 % (38.7-73.9); Platelet Count 280 T/CUMM (130-400); Red Blood Count 2.33 MC/CUMM (3.8-5.5); White Blood Count 12.5 T/CUMM (4-12)
[2020-11-17 06:53] LABS: Calcium 9.3 MG/DL (8.5-10.1); Osmolality,Calculated 282.7 MOS/KG (273-304); Potassium 4.9 MMOL/L (3.5-5.1)
[2020-11-17] MEDS: INSULIN LISPRO 100 UNIT/ML SUBCUT SCH ×4 (09:20→21:13)
[2020-11-17] MEDS: METOCLOPRAMIDE 10 MG TABLET PO SCH ×4 (09:21→20:21)
[2020-11-17] MEDS: CALCIUM ACETATE 667 MG CAPSULE PO SCH ×3 (09:21→17:51)
[2020-11-17] MEDS: DOCUSATE SODIUM 100 MG CAPSULE PO PRN (09:21)
[2020-11-17] MEDS: MULTIVITAMIN (BEROCCA) TABLET PO SCH (09:21)
[2020-11-17] MEDS: INSULIN NPH/REGULAR 70/30 100 UNIT/ML SUBCUT SCH (09:21)
[2020-11-17] MEDS: ISOSORBIDE MONONITRATE 30 MG TABLET PO SCH (09:21)
[2020-11-17] MEDS: PANTOPRAZOLE 40 MG TABLET PO SCH (09:21)
[2020-11-17] MEDS: CLOPIDOGREL 75 MG TABLET PO SCH (09:21)
[2020-11-17] MEDS: POLYETHYLENE GLYCOL POWDER 17 GM PACK PO SCH (09:22)
[2020-11-17] MEDS: LOSARTAN 50 MG TABLET PO SCH (09:22)
[2020-11-17] MEDS: FENOFIBRATE 145 MG TABLET PO SCH (09:22)
[2020-11-17] MEDS: ASPIRIN EC 81 MG TABLET PO SCH (09:22)
[2020-11-17] MEDS: carvediloL 6.25 MG TABLET PO SCH ×2 (09:22→20:21)
[2020-11-17] MEDS: LACTATED RINGERS 1,000 ML IV SCH (10:52)
[2020-11-17] MEDS ORDERED: EPOETIN ALFA-EPBX 2,000 UNIT/ML VIAL IV PRN (14:40)
[2020-11-17] MEDS: INSULIN ASPART PROTAMINE/ASPART 70/30 100 UNIT/ML SUBCUT SCH (17:52)
[2020-11-17] MEDS: ATORVASTATIN 40 MG TABLET PO SCH (20:21)
[2020-11-18 09:42] LABS: Basophils # 0.1 10*3/uL (0.0-0.2); Basophils % 0.4 % (0.0-0.8); Eosinophils # 0.2 10*3/uL (0.0-0.87); Eosinophils % 1.3 % (0.00-10.9); Hematocrit 23.1 VOL% (42.0-52.0); Hemoglobin 7.5 GM/DL (14.0-18.0); Immature Granulocytes % 1.4 %; Immature Granulocytes Absolute 0.17 #; Lymphocytes # 0.9 10*3/uL (1.4-4.0); Lymphocytes % 7.6 % (21.2-54.2); Mean Corpuscular HGB Conc 32.5 GM/DL (32-36); Mean Corpuscular Volume 101.8 FL (87-102); Mean Platelet Volume 9.9 FL (9.6-12.0); Monocytes % 6.2 % (1.7-12.7); Neutrophils % 83.1 % (38.7-73.9); Platelet Count 285 T/CUMM (130-400); Red Blood Count 2.27 MC/CUMM (3.8-5.5); Red Cell Distribution Width 17.1 % (9.3-17.3)
[2020-11-18 09:58] LABS: Calcium 8.9 MG/DL (8.5-10.1); Osmolality,Calculated 289.5 MOS/KG (273-304); Potassium 5.1 MMOL/L (3.5-5.1)
[2020-11-18] MEDS: INSULIN LISPRO 100 UNIT/ML SUBCUT SCH ×4 (10:15→21:48)
[2020-11-18] MEDS: CALCIUM ACETATE 667 MG CAPSULE PO SCH ×3 (10:16→17:42)
[2020-11-18] MEDS: INSULIN NPH/REGULAR 70/30 100 UNIT/ML SUBCUT SCH (10:16)
[2020-11-18] MEDS: METOCLOPRAMIDE 10 MG TABLET PO SCH ×4 (10:16→21:47)
[2020-11-18] MEDS: ISOSORBIDE MONONITRATE 30 MG TABLET PO SCH (10:17)
[2020-11-18] MEDS: MULTIVITAMIN (BEROCCA) TABLET PO SCH (10:17)
[2020-11-18] MEDS: carvediloL 6.25 MG TABLET PO SCH ×2 (10:17→21:48)
[2020-11-18] MEDS: LOSARTAN 50 MG TABLET PO SCH (10:17)
[2020-11-18] MEDS: ASPIRIN EC 81 MG TABLET PO SCH (10:17)
[2020-11-18] MEDS: POLYETHYLENE GLYCOL POWDER 17 GM PACK PO SCH (10:17)
[2020-11-18] MEDS: FENOFIBRATE 145 MG TABLET PO SCH (10:18)
[2020-11-18] MEDS: PANTOPRAZOLE 40 MG TABLET PO SCH (10:18)
[2020-11-18] MEDS: CLOPIDOGREL 75 MG TABLET PO SCH (10:18)
[2020-11-18 12:51] LABS: Total Protein (Chem) 7.1 G/DL (6.4-8.3)
[2020-11-18 12:52] LABS: Immunoglobulin A (Chem) 162 MG/DL (70-400); Immunoglobulin G (Chem) 1180 MG/DL (700-1600); Immunoglobulin M (Chem) < 21 MG/DL (40-230)
[2020-11-18] MEDS: LACTATED RINGERS 1,000 ML IV SCH (13:08)
[2020-11-18] MEDS ORDERED: DEXTROSE 50% 25 GM/50 ML VIAL IV PRN ×2 (14:16→15:36)
[2020-11-18] MEDS ORDERED: GLUCAGON 1 MG VIAL IM PRN (15:36)
[2020-11-18] MEDS: INSULIN ASPART PROTAMINE/ASPART 70/30 100 UNIT/ML SUBCUT SCH (17:34)
[2020-11-18] MEDS: ATORVASTATIN 40 MG TABLET PO SCH (21:47)
[2020-11-19 05:45] LABS: Basophils # 0.1 10*3/uL (0.0-0.2); Basophils % 0.5 % (0.0-0.8); Eosinophils # 0.1 10*3/uL (0.0-0.87); Eosinophils % 0.9 % (0.00-10.9); Hematocrit 24.8 VOL% (42.0-52.0); Hemoglobin 7.8 GM/DL (14.0-18.0); Immature Granulocytes % 1.3 %; Immature Granulocytes Absolute 0.19 #; Lymphocytes # 1.4 10*3/uL (1.4-4.0); Lymphocytes % 9.7 % (21.2-54.2); Mean Corpuscular HGB Conc 31.5 GM/DL (32-36); Mean Corpuscular Volume 102.1 FL (87-102); Mean Platelet Volume 9.9 FL (9.6-12.0); Monocytes % 7.9 % (1.7-12.7); Neutrophils % 79.7 % (38.7-73.9); Platelet Count 329 T/CUMM (130-400); Red Blood Count 2.43 MC/CUMM (3.8-5.5); White Blood Count 14.5 T/CUMM (4-12)
[2020-11-19 06:11] LABS: Calcium 8.9 MG/DL (8.5-10.1); Osmolality,Calculated 279.7 MOS/KG (273-304); Potassium 4.5 MMOL/L (3.5-5.1)
[2020-11-19 06:13] LABS: Osmolality,Calculated 284.4 MOS/KG (273-304); Potassium 4.5 MMOL/L (3.5-5.1)
[2020-11-19] MEDS: INSULIN LISPRO 100 UNIT/ML SUBCUT SCH ×4 (08:50→21:34)
[2020-11-19] MEDS: METOCLOPRAMIDE 10 MG TABLET PO SCH ×4 (08:50→21:46)
[2020-11-19] MEDS: MULTIVITAMIN (BEROCCA) TABLET PO SCH (08:50)
[2020-11-19] MEDS: ASPIRIN EC 81 MG TABLET PO SCH (08:50)
[2020-11-19] MEDS: INSULIN NPH/REGULAR 70/30 100 UNIT/ML SUBCUT SCH (08:50)
[2020-11-19] MEDS: CALCIUM ACETATE 667 MG CAPSULE PO SCH ×3 (08:50→17:15)
[2020-11-19] MEDS: PANTOPRAZOLE 40 MG TABLET PO SCH (08:51)
[2020-11-19] MEDS: FENOFIBRATE 145 MG TABLET PO SCH (08:51)
[2020-11-19] MEDS: LOSARTAN 50 MG TABLET PO SCH (08:51)
[2020-11-19] MEDS: ISOSORBIDE MONONITRATE 30 MG TABLET PO SCH (08:51)
[2020-11-19] MEDS: POLYETHYLENE GLYCOL POWDER 17 GM PACK PO SCH (08:51)
[2020-11-19] MEDS: carvediloL 6.25 MG TABLET PO SCH ×2 (08:51→21:46)
[2020-11-19] MEDS: CLOPIDOGREL 75 MG TABLET PO SCH (08:51)
[2020-11-19] MEDS ORDERED: VANCOMYCIN INJ 1,500 MG in SODIUM CHLORIDE 0.9% 500 ML IV ONE (09:00)
[2020-11-19 09:34] LABS: Albumin (SPE) 3.5 G/DL (3.2-5.3); Albumin (SPE) Rel % 48.6 %; Alpha 1 (SPE) 0.4 G/DL (0.1-0.4); Alpha 1 (SPE) Rel % 5.7 %; Alpha 2 (SPE) Rel % 13.7 %; Beta (SPE) Rel % 14.6 %; Gamma (SPE) 1.2 G/DL (0.7-1.7); Gamma (SPE) Rel % 17.4 %
[2020-11-19] MEDS ORDERED: ROPIVACAINE 0.5% 30 ML VIAL ONE (10:02)
[2020-11-19] MEDS ORDERED: LIDOCAINE 1% 5 ML VIAL ONE (10:02)
[2020-11-19] MEDS ORDERED: DEXMEDETOMIDINE 200 MCG/2 ML VIAL ONE (10:05)
[2020-11-19] MEDS ORDERED: fentaNYL 100 MCG/2 ML VIAL ONE (10:30)
[2020-11-19] MEDS ORDERED: SODIUM CHLORIDE 0.9% 1,000 ML IV PRN (10:49)
[2020-11-19] MEDS ORDERED: ePHEDrine 50 MG/ML VIAL ONE (10:57)
[2020-11-19] MEDS ORDERED: SEVOFLURANE 1 UNIT/15 MINUTE INH ONE ×4 (11:13→11:32)
[2020-11-19] MEDS ORDERED: ROCURONIUM 50 MG/5 ML VIAL IV ONE (11:13)
[2020-11-19] MEDS ORDERED: ETOMIDATE 40 MG/20 ML VIAL IV ONE (11:13)
[2020-11-19] MEDS ORDERED: SODIUM CHLORIDE 0.9% 500 ML IV ONE (11:13)
[2020-11-19] MEDS ORDERED: LIDOCAINE 2% 5 ML VIAL ONE (11:13)
[2020-11-19] MEDS ORDERED: SUGAMMADEX 200 MG/2 ML VIAL IV ONE (11:28)
[2020-11-19] MEDS ORDERED: NALOXONE 0.4 MG/ML VIAL IV PRN (11:44)
[2020-11-19] MEDS: HYDROmorphone PCA 30 MG/30 ML SYRINGE IV SCH (12:20)
[2020-11-19] MEDS: LACTATED RINGERS 1,000 ML IV SCH (12:53)
[2020-11-19 16:40] LABS: Hematocrit 28.6 VOL% (42.0-52.0); Hemoglobin 9.3 GM/DL (14.0-18.0)
[2020-11-19] MEDS: INSULIN ASPART PROTAMINE/ASPART 70/30 100 UNIT/ML SUBCUT SCH (17:14)
[2020-11-19] MEDS: ATORVASTATIN 40 MG TABLET PO SCH (21:46)
[2020-11-20 06:09] LABS: Basophils # 0.1 10*3/uL (0.0-0.2); Basophils % 0.7 % (0.0-0.8); Eosinophils # 0.3 10*3/uL (0.0-0.87); Eosinophils % 2.2 % (0.00-10.9); Hematocrit 31.1 VOL% (42.0-52.0); Hemoglobin 9.6 GM/DL (14.0-18.0); Immature Granulocytes % 1.1 %; Immature Granulocytes Absolute 0.12 #; Lymphocytes % 8.6 % (21.2-54.2); Mean Corpuscular HGB Conc 30.9 GM/DL (32-36); Mean Corpuscular Volume 102.3 FL (87-102); Mean Platelet Volume 9.7 FL (9.6-12.0); Monocytes % 7.7 % (1.7-12.7); Neutrophils % 79.7 % (38.7-73.9); Platelet Count 320 T/CUMM (130-400); Red Blood Count 3.04 MC/CUMM (3.8-5.5); Red Cell Distribution Width 17.5 % (9.3-17.3); White Blood Count 11.2 T/CUMM (4-12)
[2020-11-20 06:31] LABS: Calcium 8.8 MG/DL (8.5-10.1); Osmolality,Calculated 291.4 MOS/KG (273-304); Potassium 4.9 MMOL/L (3.5-5.1)
[2020-11-20] MEDS: CLOPIDOGREL 75 MG TABLET PO SCH (08:40)
[2020-11-20] MEDS: carvediloL 6.25 MG TABLET PO SCH ×2 (08:40→20:48)
[2020-11-20] MEDS: PANTOPRAZOLE 40 MG TABLET PO SCH (08:40)
[2020-11-20] MEDS: INSULIN NPH/REGULAR 70/30 100 UNIT/ML SUBCUT SCH (08:40)
[2020-11-20] MEDS: ISOSORBIDE MONONITRATE 30 MG TABLET PO SCH (08:40)
[2020-11-20] MEDS: ASPIRIN EC 81 MG TABLET PO SCH (08:40)
[2020-11-20] MEDS: METOCLOPRAMIDE 10 MG TABLET PO SCH ×4 (08:40→20:48)
[2020-11-20] MEDS: MULTIVITAMIN (BEROCCA) TABLET PO SCH (08:40)
[2020-11-20] MEDS: FENOFIBRATE 145 MG TABLET PO SCH (08:40)
[2020-11-20] MEDS: LOSARTAN 50 MG TABLET PO SCH (08:40)
[2020-11-20] MEDS: INSULIN LISPRO 100 UNIT/ML SUBCUT SCH ×4 (08:50→22:12)
[2020-11-20] MEDS: CALCIUM ACETATE 667 MG CAPSULE PO SCH ×3 (08:51→16:55)
[2020-11-20] MEDS: POLYETHYLENE GLYCOL POWDER 17 GM PACK PO SCH (08:52)
[2020-11-20] MEDS: HYDROmorphone PCA 30 MG/30 ML SYRINGE IV SCH (13:10)
[2020-11-20] MEDS: INSULIN ASPART PROTAMINE/ASPART 70/30 100 UNIT/ML SUBCUT SCH (16:59)
[2020-11-20] MEDS: ATORVASTATIN 40 MG TABLET PO SCH (20:48)
[2020-11-21 07:10] LABS: Basophils # 0.1 10*3/uL (0.0-0.2); Basophils % 0.7 % (0.0-0.8); Eosinophils # 0.2 10*3/uL (0.0-0.87); Eosinophils % 2.1 % (0.00-10.9); Hemoglobin 9.1 GM/DL (14.0-18.0); Immature Granulocytes % 0.8 %; Immature Granulocytes Absolute 0.09 #; Lymphocytes # 1.1 10*3/uL (1.4-4.0); Lymphocytes % 9.8 % (21.2-54.2); Mean Corpuscular HGB Conc 31.4 GM/DL (32-36); Mean Corpuscular Volume 101.8 FL (87-102); Mean Platelet Volume 9.7 FL (9.6-12.0); Neutrophils % 77.6 % (38.7-73.9); Platelet Count 323 T/CUMM (130-400); Red Blood Count 2.85 MC/CUMM (3.8-5.5); Red Cell Distribution Width 17.5 % (9.3-17.3); White Blood Count 11.1 T/CUMM (4-12)
[2020-11-21 07:44] LABS: Calcium 9.1 MG/DL (8.5-10.1); Osmolality,Calculated 288.7 MOS/KG (273-304); Potassium 4.8 MMOL/L (3.5-5.1)
[2020-11-21] MEDS: INSULIN NPH/REGULAR 70/30 100 UNIT/ML SUBCUT SCH (07:50)
[2020-11-21] MEDS: INSULIN LISPRO 100 UNIT/ML SUBCUT SCH ×4 (07:50→20:25)
[2020-11-21] MEDS: METOCLOPRAMIDE 10 MG TABLET PO SCH ×4 (08:46→20:26)
[2020-11-21] MEDS: CALCIUM ACETATE 667 MG CAPSULE PO SCH ×3 (08:46→17:27)
[2020-11-21] MEDS: ASPIRIN EC 81 MG TABLET PO SCH (08:47)
[2020-11-21] MEDS: carvediloL 6.25 MG TABLET PO SCH ×2 (08:47→20:26)
[2020-11-21] MEDS: LOSARTAN 50 MG TABLET PO SCH (08:47)
[2020-11-21] MEDS: MULTIVITAMIN (BEROCCA) TABLET PO SCH (08:47)
[2020-11-21] MEDS: PANTOPRAZOLE 40 MG TABLET PO SCH (08:48)
[2020-11-21] MEDS: ISOSORBIDE MONONITRATE 30 MG TABLET PO SCH (08:48)
[2020-11-21] MEDS: FENOFIBRATE 145 MG TABLET PO SCH (08:48)
[2020-11-21] MEDS: CLOPIDOGREL 75 MG TABLET PO SCH (08:48)
[2020-11-21] MEDS: POLYETHYLENE GLYCOL POWDER 17 GM PACK PO SCH (08:48)
[2020-11-21] MEDS: INSULIN ASPART PROTAMINE/ASPART 70/30 100 UNIT/ML SUBCUT SCH (16:30)
[2020-11-21] MEDS: HYDROmorphone PCA 30 MG/30 ML SYRINGE IV SCH (17:27)
[2020-11-21] MEDS: ATORVASTATIN 40 MG TABLET PO SCH (20:26)
[2020-11-22 06:29] LABS: Basophils # 0.1 10*3/uL (0.0-0.2); Basophils % 0.5 % (0.0-0.8); Eosinophils # 0.2 10*3/uL (0.0-0.87); Hematocrit 26.8 VOL% (42.0-52.0); Hemoglobin 8.5 GM/DL (14.0-18.0); Immature Granulocytes % 0.7 %; Immature Granulocytes Absolute 0.07 #; Lymphocytes # 0.8 10*3/uL (1.4-4.0); Lymphocytes % 7.8 % (21.2-54.2); Mean Corpuscular HGB Conc 31.7 GM/DL (32-36); Mean Platelet Volume 9.6 FL (9.6-12.0); Monocytes % 8.2 % (1.7-12.7); Neutrophils % 80.8 % (38.7-73.9); Platelet Count 305 T/CUMM (130-400); Red Blood Count 2.68 MC/CUMM (3.8-5.5); Red Cell Distribution Width 17.4 % (9.3-17.3); White Blood Count 9.9 T/CUMM (4-12)
[2020-11-22 06:40] LABS: Calcium 8.8 MG/DL (8.5-10.1); Potassium 5.1 MMOL/L (3.5-5.1)
[2020-11-22] MEDS: INSULIN LISPRO 100 UNIT/ML SUBCUT SCH ×3 (10:53→21:08)
[2020-11-22] MEDS: CALCIUM ACETATE 667 MG CAPSULE PO SCH ×3 (10:53→19:25)
[2020-11-22] MEDS: METOCLOPRAMIDE 10 MG TABLET PO SCH ×4 (10:53→21:08)
[2020-11-22] MEDS: INSULIN NPH/REGULAR 70/30 100 UNIT/ML SUBCUT SCH (13:14)
[2020-11-22] MEDS: ISOSORBIDE MONONITRATE 30 MG TABLET PO SCH (13:21)
[2020-11-22] MEDS: FENOFIBRATE 145 MG TABLET PO SCH (13:21)
[2020-11-22] MEDS: POLYETHYLENE GLYCOL POWDER 17 GM PACK PO SCH (13:22)
[2020-11-22] MEDS: PANTOPRAZOLE 40 MG TABLET PO SCH (13:22)
[2020-11-22] MEDS: MULTIVITAMIN (BEROCCA) TABLET PO SCH (13:22)
[2020-11-22] MEDS: carvediloL 6.25 MG TABLET PO SCH ×2 (13:22→21:08)
[2020-11-22] MEDS: LOSARTAN 50 MG TABLET PO SCH (13:22)
[2020-11-22] MEDS: ASPIRIN EC 81 MG TABLET PO SCH (13:22)
[2020-11-22] MEDS: CLOPIDOGREL 75 MG TABLET PO SCH (13:28)
[2020-11-22] MEDS: INSULIN ASPART PROTAMINE/ASPART 70/30 100 UNIT/ML SUBCUT SCH (19:24)
[2020-11-22] MEDS: ATORVASTATIN 40 MG TABLET PO SCH (21:07)
[2020-11-23] MEDS: METOCLOPRAMIDE 10 MG TABLET PO SCH ×4 (07:46→21:09)
[2020-11-23] MEDS: CALCIUM ACETATE 667 MG CAPSULE PO SCH ×3 (07:46→17:12)
[2020-11-23] MEDS ORDERED: oxyCODONE/ACETAMINOPHEN 5-325 MG TABLET PO PRN (09:07)
[2020-11-23] MEDS: ISOSORBIDE MONONITRATE 30 MG TABLET PO SCH (09:33)
[2020-11-23] MEDS: carvediloL 6.25 MG TABLET PO SCH ×2 (09:33→21:09)
[2020-11-23] MEDS: LOSARTAN 50 MG TABLET PO SCH (09:33)
[2020-11-23] MEDS: FENOFIBRATE 145 MG TABLET PO SCH (09:33)
[2020-11-23] MEDS: MULTIVITAMIN (BEROCCA) TABLET PO SCH (09:33)
[2020-11-23] MEDS: ASPIRIN EC 81 MG TABLET PO SCH (09:33)
[2020-11-23] MEDS: POLYETHYLENE GLYCOL POWDER 17 GM PACK PO SCH (09:35)
[2020-11-23] MEDS: CLOPIDOGREL 75 MG TABLET PO SCH (09:38)
[2020-11-23] MEDS: PANTOPRAZOLE 40 MG TABLET PO SCH (09:38)
[2020-11-23] MEDS: INSULIN LISPRO 100 UNIT/ML SUBCUT SCH ×4 (12:14→21:08)
[2020-11-23] MEDS: INSULIN NPH/REGULAR 70/30 100 UNIT/ML SUBCUT SCH (12:14)
[2020-11-23] MEDS: INSULIN ASPART PROTAMINE/ASPART 70/30 100 UNIT/ML SUBCUT SCH (16:55)
[2020-11-23] MEDS: ATORVASTATIN 40 MG TABLET PO SCH (21:09)
[2020-11-24] MEDS: ACETAMINOPHEN 325 MG TABLET PO PRN (01:45)
[2020-11-24 06:10] LABS: Basophils # 0.1 10*3/uL (0.0-0.2); Basophils % 0.8 % (0.0-0.8); Eosinophils % 0.4 % (0.00-10.9); Hematocrit 27.6 VOL% (42.0-52.0); Hemoglobin 8.8 GM/DL (14.0-18.0); Immature Granulocytes Absolute 0.08 #; Lymphocytes # 0.9 10*3/uL (1.4-4.0); Mean Corpuscular HGB Conc 31.9 GM/DL (32-36); Mean Corpuscular Volume 100.7 FL (87-102); Mean Platelet Volume 9.7 FL (9.6-12.0); Monocytes % 12.5 % (1.7-12.7); NRBC # 0.02 10*3/uL; Neutrophils % 74.3 % (38.7-73.9); Platelet Count 272 T/CUMM (130-400); Red Blood Count 2.74 MC/CUMM (3.8-5.5); Red Cell Distribution Width 17.3 % (9.3-17.3); White Blood Count 7.8 T/CUMM (4-12)
[2020-11-24 06:35] LABS: Calcium 8.9 MG/DL (8.5-10.1); Osmolality,Calculated 283.5 MOS/KG (273-304)
[2020-11-24] MEDS: METOCLOPRAMIDE 10 MG TABLET PO SCH ×4 (07:57→21:09)
[2020-11-24] MEDS: oxyCODONE/ACETAMINOPHEN 5-325 MG TABLET PO PRN ×2 (07:57→17:31)
[2020-11-24] MEDS: CALCIUM ACETATE 667 MG CAPSULE PO SCH ×3 (07:57→17:30)
[2020-11-24] MEDS: INSULIN NPH/REGULAR 70/30 100 UNIT/ML SUBCUT SCH (08:24)
[2020-11-24] MEDS: INSULIN LISPRO 100 UNIT/ML SUBCUT SCH ×5 (08:24→21:09)
[2020-11-24] MEDS: FENOFIBRATE 145 MG TABLET PO SCH (10:27)
[2020-11-24] MEDS: ISOSORBIDE MONONITRATE 30 MG TABLET PO SCH (10:27)
[2020-11-24] MEDS: CLOPIDOGREL 75 MG TABLET PO SCH (10:27)
[2020-11-24] MEDS: ASPIRIN EC 81 MG TABLET PO SCH (10:27)
[2020-11-24] MEDS: MULTIVITAMIN (BEROCCA) TABLET PO SCH (10:27)
[2020-11-24] MEDS: POLYETHYLENE GLYCOL POWDER 17 GM PACK PO SCH (10:28)
[2020-11-24] MEDS: carvediloL 6.25 MG TABLET PO SCH ×2 (10:28→21:09)
[2020-11-24] MEDS: PANTOPRAZOLE 40 MG TABLET PO SCH (10:28)
[2020-11-24] MEDS: LOSARTAN 50 MG TABLET PO SCH (10:28)
[2020-11-24] MEDS: INSULIN ASPART PROTAMINE/ASPART 70/30 100 UNIT/ML SUBCUT SCH (17:32)
[2020-11-24] MEDS: ATORVASTATIN 40 MG TABLET PO SCH (21:09)
[2020-11-25 06:22] LABS: Basophils # 0.1 10*3/uL (0.0-0.2); Basophils % 0.8 % (0.0-0.8); Eosinophils % 0.4 % (0.00-10.9); Hematocrit 26.7 VOL% (42.0-52.0); Hemoglobin 8.4 GM/DL (14.0-18.0); Immature Granulocytes % 0.4 %; Immature Granulocytes Absolute 0.03 #; Lymphocytes # 0.8 10*3/uL (1.4-4.0); Lymphocytes % 10.9 % (21.2-54.2); Mean Corpuscular HGB Conc 31.5 GM/DL (32-36); Mean Corpuscular Volume 98.9 FL (87-102); Mean Platelet Volume 9.3 FL (9.6-12.0); Monocytes % 8.3 % (1.7-12.7); Neutrophils % 79.2 % (38.7-73.9); Platelet Count 247 T/CUMM (130-400); White Blood Count 7.3 T/CUMM (4-12)
[2020-11-25 06:52] LABS: Calcium 8.8 MG/DL (8.5-10.1); Osmolality,Calculated 285.7 MOS/KG (273-304); Potassium 5.2 MMOL/L (3.5-5.1)
[2020-11-25] MEDS: METOCLOPRAMIDE 10 MG TABLET PO SCH ×4 (10:10→21:40)
[2020-11-25] MEDS: CALCIUM ACETATE 667 MG CAPSULE PO SCH ×3 (10:11→17:17)
[2020-11-25] MEDS: CLOPIDOGREL 75 MG TABLET PO SCH (10:11)
[2020-11-25] MEDS: FENOFIBRATE 145 MG TABLET PO SCH (10:11)
[2020-11-25] MEDS: MULTIVITAMIN (BEROCCA) TABLET PO SCH (10:11)
[2020-11-25] MEDS: PANTOPRAZOLE 40 MG TABLET PO SCH (10:11)
[2020-11-25] MEDS: ASPIRIN EC 81 MG TABLET PO SCH (10:11)
[2020-11-25] MEDS: oxyCODONE/ACETAMINOPHEN 5-325 MG TABLET PO PRN (10:12)
[2020-11-25] MEDS: POLYETHYLENE GLYCOL POWDER 17 GM PACK PO SCH (10:13)
[2020-11-25] MEDS: INSULIN NPH/REGULAR 70/30 100 UNIT/ML SUBCUT SCH (10:13)
[2020-11-25] MEDS: INSULIN LISPRO 100 UNIT/ML SUBCUT SCH ×3 (12:16→21:40)
[2020-11-25] MEDS: LOSARTAN 50 MG TABLET PO SCH (12:17)
[2020-11-25] MEDS: ISOSORBIDE MONONITRATE 30 MG TABLET PO SCH (12:17)
[2020-11-25] MEDS: carvediloL 6.25 MG TABLET PO SCH ×2 (12:17→21:40)
[2020-11-25] MEDS: HYDROmorphone PCA 30 MG/30 ML SYRINGE IV SCH (13:55)
[2020-11-25] MEDS: INSULIN ASPART PROTAMINE/ASPART 70/30 100 UNIT/ML SUBCUT SCH (17:05)
[2020-11-25] MEDS: ATORVASTATIN 40 MG TABLET PO SCH (21:40)
[2020-11-25] MEDS: ACETAMINOPHEN 325 MG TABLET PO PRN (23:50)
[2020-11-26] MEDS: INSULIN LISPRO 100 UNIT/ML SUBCUT SCH ×4 (08:02→21:17)
[2020-11-26] MEDS: POLYETHYLENE GLYCOL POWDER 17 GM PACK PO SCH (09:31)
[2020-11-26] MEDS: oxyCODONE/ACETAMINOPHEN 5-325 MG TABLET PO PRN ×2 (09:32→16:52)
[2020-11-26] MEDS: CALCIUM ACETATE 667 MG CAPSULE PO SCH ×4 (09:32→16:52)
[2020-11-26] MEDS: carvediloL 6.25 MG TABLET PO SCH ×2 (09:32→21:17)
[2020-11-26] MEDS: LOSARTAN 50 MG TABLET PO SCH (09:32)
[2020-11-26] MEDS: CLOPIDOGREL 75 MG TABLET PO SCH (09:33)
[2020-11-26] MEDS: ASPIRIN EC 81 MG TABLET PO SCH (09:33)
[2020-11-26] MEDS: FENOFIBRATE 145 MG TABLET PO SCH (09:34)
[2020-11-26] MEDS: PANTOPRAZOLE 40 MG TABLET PO SCH (09:34)
[2020-11-26] MEDS: METOCLOPRAMIDE 10 MG TABLET PO SCH ×2 (09:39→12:07)
[2020-11-26] MEDS: ISOSORBIDE MONONITRATE 30 MG TABLET PO SCH (09:41)
[2020-11-26] MEDS: MULTIVITAMIN (BEROCCA) TABLET PO SCH (09:41)
[2020-11-26] MEDS: INSULIN NPH/REGULAR 70/30 100 UNIT/ML SUBCUT SCH (09:57)
[2020-11-26] MEDS: INSULIN ASPART PROTAMINE/ASPART 70/30 100 UNIT/ML SUBCUT SCH (16:51)
[2020-11-26] MEDS: ATORVASTATIN 40 MG TABLET PO SCH (21:17)
[2020-11-27 06:12] LABS: Basophils % 0.6 % (0.0-0.8); Eosinophils % 0.2 % (0.00-10.9); Hematocrit 26.9 VOL% (42.0-52.0); Hemoglobin 8.6 GM/DL (14.0-18.0); Immature Granulocytes % 0.5 %; Immature Granulocytes Absolute 0.03 #; Lymphocytes # 0.8 10*3/uL (1.4-4.0); Lymphocytes % 12.2 % (21.2-54.2); Mean Corpuscular Volume 98.5 FL (87-102); Mean Platelet Volume 9.8 FL (9.6-12.0); Monocytes % 9.3 % (1.7-12.7); Neutrophils % 77.2 % (38.7-73.9); Platelet Count 192 T/CUMM (130-400); Red Blood Count 2.73 MC/CUMM (3.8-5.5); Red Cell Distribution Width 16.9 % (9.3-17.3); White Blood Count 6.6 T/CUMM (4-12)
[2020-11-27 06:28] LABS: Calcium 8.4 MG/DL (8.5-10.1); Osmolality,Calculated 277.7 MOS/KG (273-304); Potassium 5.4 MMOL/L (3.5-5.1)
[2020-11-27] MEDS: INSULIN LISPRO 100 UNIT/ML SUBCUT SCH ×4 (08:37→22:18)
[2020-11-27] MEDS: INSULIN NPH/REGULAR 70/30 100 UNIT/ML SUBCUT SCH (09:17)
[2020-11-27] MEDS: CALCIUM ACETATE 667 MG CAPSULE PO SCH ×3 (09:17→16:16)
[2020-11-27] MEDS: MULTIVITAMIN (BEROCCA) TABLET PO SCH (09:18)
[2020-11-27] MEDS: CLOPIDOGREL 75 MG TABLET PO SCH (09:18)
[2020-11-27] MEDS: ASPIRIN EC 81 MG TABLET PO SCH (09:18)
[2020-11-27] MEDS: ISOSORBIDE MONONITRATE 30 MG TABLET PO SCH (09:18)
[2020-11-27] MEDS: POLYETHYLENE GLYCOL POWDER 17 GM PACK PO SCH (09:18)
[2020-11-27] MEDS: FENOFIBRATE 145 MG TABLET PO SCH (09:18)
[2020-11-27] MEDS: PANTOPRAZOLE 40 MG TABLET PO SCH (09:18)
[2020-11-27] MEDS: carvediloL 6.25 MG TABLET PO SCH ×2 (12:54→21:46)
[2020-11-27] MEDS: LOSARTAN 50 MG TABLET PO SCH (12:54)
[2020-11-27] MEDS: INSULIN ASPART PROTAMINE/ASPART 70/30 100 UNIT/ML SUBCUT SCH (15:37)
[2020-11-27] MEDS: oxyCODONE/ACETAMINOPHEN 5-325 MG TABLET PO PRN ×2 (16:17→21:47)
[2020-11-27] MEDS: ATORVASTATIN 40 MG TABLET PO SCH (21:46)
[2020-11-28] MEDS: oxyCODONE/ACETAMINOPHEN 5-325 MG TABLET PO PRN (02:58)
[2020-11-28 05:40] LABS: Basophils % 0.4 % (0.0-0.8); Hematocrit 27.2 VOL% (42.0-52.0); Hemoglobin 8.5 GM/DL (14.0-18.0); Immature Granulocytes % 0.4 %; Immature Granulocytes Absolute 0.04 #; Lymphocytes # 0.9 10*3/uL (1.4-4.0); Mean Corpuscular HGB Conc 31.3 GM/DL (32-36); Mean Corpuscular Volume 100.7 FL (87-102); Monocytes % 9.7 % (1.7-12.7); Neutrophils % 80.5 % (38.7-73.9); Platelet Count 173 T/CUMM (130-400); Red Cell Distribution Width 16.8 % (9.3-17.3); White Blood Count 10.4 T/CUMM (4-12)
[2020-11-28 06:05] LABS: Calcium 8.5 MG/DL (8.5-10.1); Potassium 4.4 MMOL/L (3.5-5.1)
[2020-11-28] MEDS: FENOFIBRATE 145 MG TABLET PO SCH (08:44)
[2020-11-28] MEDS: ASPIRIN EC 81 MG TABLET PO SCH (08:44)
[2020-11-28] MEDS: PANTOPRAZOLE 40 MG TABLET PO SCH (08:44)
[2020-11-28] MEDS: ISOSORBIDE MONONITRATE 30 MG TABLET PO SCH (08:44)
[2020-11-28] MEDS: CALCIUM ACETATE 667 MG CAPSULE PO SCH ×2 (08:44→11:08)
[2020-11-28] MEDS: MULTIVITAMIN (BEROCCA) TABLET PO SCH (08:44)
[2020-11-28] MEDS: CLOPIDOGREL 75 MG TABLET PO SCH (08:45)
[2020-11-28] MEDS: INSULIN LISPRO 100 UNIT/ML SUBCUT SCH ×2 (08:46→11:07)
[2020-11-28] MEDS: INSULIN NPH/REGULAR 70/30 100 UNIT/ML SUBCUT SCH (08:47)
[2020-11-28] MEDS: LOSARTAN 50 MG TABLET PO SCH (09:51)
[2020-11-28] MEDS: carvediloL 6.25 MG TABLET PO SCH (09:51)
[2020-11-28] MEDS: POLYETHYLENE GLYCOL POWDER 17 GM PACK PO SCH (09:52)
[2020-11-28 11:38] VITALS: BP 123/69
== END 2020-11-28 15:05 | DRG 239 ==
LOC: EDUNIT# → EDBD → N.ED 18:42 → SUATTDRO 20:56 → N.EDINP 20:56 → N.3E 21:16 → N.2E 11-25 13:51
PROVIDERS: ADMIT Internal Medicine; ATTEND Internal Medicine